=== PATIENT | female | born 1960 | race Two or more races ===

== ENCOUNTER → 2020-10-31 | Outpatient (CLI) | payer OTHER ==
--- NOTE | 2020-10-31 11:24 | RAD ---
INDICATION: Reason: cramping / Spl. Instructions: / History: COMPARISON: None. TECHNIQUE: Grayscale and color ultrasound images uterus and adnexa. FINDINGS: Uterus: 88 x 63 x 44 mm. 10 mm endometrial stripe Right Ovary: 29 x 20 x 16 mm. Left Ovary: 22 x 15 x 12 mm. Vascular flow identified to bilateral ovaries. Solid-appearing masslike structure which is partially exophytic from the left anterior aspect of the uterus measuring up to 46 x 31 mm with some echogenic foci within which could be from calcifications. IMPRESSION: * Masslike structure at the uterus most likely secondary to uterine fibroid * The endometrial stripe is mildly thickened for a postmenopausal patient. This could be secondary t o causes such as hyperplasia but would obtain a follow-up to ensure no increase to exclude neoplastic causes. Electronically signed by: Omid Clayton MD (10/31/2020 11:21 AM) [id number]
== END ==
LOC: US 11:00
PROVIDERS: ATTEND Nurse Practitioner Primary Care
DX: R93.89 Abnormal findings on diagnostic imaging of other specified body structures (principal); Z78.0 Asymptomatic menopausal state
CPT/HCPCS: 76856